=== PATIENT | male | born 1980 | race Caucasian/White ===

== ENCOUNTER 2018-03-01 23:28 | Emergency (ER) | payer OTHER, SELFPAY ==
[2018-03-01 23:42] VITALS: BP 150/90; PULSE 83; RESP 24; TEMP 36.7; O2SAT 100; BMI 35.9
--- NOTE | 2018-03-02 00:03 | ED_ITS ---
HPI - Male Genitourinary General Chief complaint: Urogenital-Male Stated complaint: sharp pain from abdomen to scrotom Time Seen by Provider: 03/02/18 00:03 Source: patient Mode of arrival: ambulatory Limitations: no limitations History of Present Illness HPI Narrative: The patient was walking around outside this evening, he experienced sudden onset of right testicular pain radiating to the right mid abdomen. He urinated about 20 min before onset of pain. There is no dysuria or hematuria. The pain started suddenly 20 min afterwards. He has no prior history of similar pain. He has no associated swelling. With the abdominal pain there is no nausea, vomiting or diarrhea. He has no back pain. He has no history of UTI Or kidney stones. He is generally healthy. Related Data Allergies Allergy/AdvReac Type Severity Reaction Status Date / Time No Known Drug Allergies Allergy Verified 03/02/18 00:32 Review of Systems Constitutional Denies chills, Denies fever(s), Denies lethargy and Denies weakness Gastrointestinal Gastrointestinal: Reports abdominal pain, Denies change in bowel habits, Denies diarrhea, Denies nausea and Denies vomiting Genitourinary Denies hematuria, Reports flank pain, Denies scrotal swelling, Denies testicular mass, Reports testicular pain, Denies urinary incontinence and Denies urinary urgency Musculoskeletal Denies back pain Integumentary/Breasts Denies erythema and Denies rash Neurologic Denies weakness [facility] Social History Smoking Status: Never smoker Exam Initial Vital Signs Initial Vital Signs: Vital Signs Temperature 98.0 F 03/01/18 23:42 Pulse Rate 83 03/01/18 23:42 Respiratory Rate 24 03/01/18 23:42 Blood Pressure 150/90 H 03/01/18 23:42 Pulse Oximetry 100 03/01/18 23:42 Const General: cooperative and well developed Nutritional Appearance: well nourished Orientation: alert, awake and oriented x3 HENMT Head: normocephalic and atraumatic GI Palpation: soft, no hepatosplenomegaly, No pulsatile mass and No tender Auscultation: normal bowel sounds External: normal external exam, circumcised, no edema, no erythema, no hernia, no scrotal swelling and tenderness ( Both testicles are retracted. He has right testicular tenderness without obvious mass.) Penis: normal penis Scrotum: no scrotal swelling Testes: other ( no obvious hernia) Back/Spine/Pelvis Back: No CVA tenderness Skin General: no rashes or lesions noted Neuro General: alert, oriented x3, gait normal and no focal motor deficits Speech: speech normal Course Orders Ordered: ED Orders 03/02/18 00:13 US scrotum Stat 03/02/18 00:57 Urinalysis and Microscopic Stat 03/02/18 02:34 Urine Microscopic Stat Discontinued Medications Ibuprofen (Advil) 800 mg PO NOW ONE Stop: 03/02/18 00:14 Last Admin: 03/02/18 00:28 Dose: 800 mg Ondansetron HCl (Zofran Odt) 4 mg PO NOW ONE Stop: 03/02/18 00:54 Last Admin: 03/02/18 00:53 Dose: 4 mg Vital Signs - 8 hr 03/01/18 23:42 Temperature 98.0 F Pulse Rate 83 Respiratory Rate 24 Blood Pressure 150/90 H Pulse Oximetry 100 [facility] - Male Genitourinary Lab Data Lab Results 03/02/18 Range/Units 00:57 Urine Color Yellow Urine Appearance Clear Urine pH 7.0 (4.5-8.0) Ur Specific [place] 1.020 (1.000-1.035) Urine Protein Negative (Negative) Urine Glucose (UA) Negative (Normal) g/dL Urine Ketones Negative (NEGATIVE) Urine Occult Blood 2+ H (Negative) Urine Nitrate Negative (Negative) Urine Bilirubin Negative (NEGATIVE) Urine Urobilinogen 0.2 (0.2) E.U./dL Ur Leukocyte Esterase Negative (NEGATIVE) Urine RBC 0-1/hpf (0-5/HPF) Urine WBC 0-1/hpf (0-5/HPF) Urine Bacteria None seen (None) Ur Culture Indicated? Cult not indicated Micro UA Comment Not Reportable Imaging Data Scrotal US: Radiologist's impression: Normal. no masses, normal arterial flow, no evidence of torsion or epididymitis. [facility] Narrative Medical decision making narrative: The patient vomited. After vomiting all testicular and abdominal pain ceased. His ultrasound and urine sample or benign. I could not detect a hernia on exam, but I do think a hernia could explain the pain and the resolution of pain with vomiting. I have discussed this with the patient. Discharge Plan Departure Patient Disposition: Home, Self-Care Clinical Impression: Acute pain in scrotum Activity Restrictions/Additional Instructions: Advil every 6 hr as needed for pain. If you have ongoing symptoms in the right lower quadrant or scrotum, follow up with your doctor. As we discussed, I think there is a possibility of a hernia. Return here for acute, uncontrollable pain.
--- NOTE | 2018-03-02 00:13 | DI.US.S_ITS ---
PROCEDURE: US SCROTUM INDICATIONS: SUDDEN ONSET RIGHT SCROTAL PAIN TECHNIQUE: Real-time scanning was performed of the scrotum and testicles, with image documentation. Color and pulse Doppler interrogation was performed of both testicles. COMPARISON: None. FINDINGS: Right: Testicle is normal in size at 2.5 x 3.6 x 5.4 cm, and homogenous in echotexture. Epididymis is normal in overall size and morphology. No hydrocele or varicoceles. Overlying scrotal skin is normal in thickness. Left: Testicle is normal in size at 2.5 x 3.4 x 5.5 cm, and homogeneous in echotexture. Epididymis is normal in overall size and morphology. No hydrocele or varicoceles. Overlying scrotal skin is normal in thickness. Doppler: Color and pulse Doppler demonstrate normal and symmetric arterial flow in both testicles. IMPRESSION: Normal examination bilaterally. Dictated by: David Campos M.D. on 03/02/2018 at 9:32 Approved by: David Campos M.D. on 03/02/2018 at 9:32
[2018-03-02] MEDS: IBUPROFEN 400 MG TABLET 800 MG PO (00:28)
[2018-03-02] MEDS: ONDANSETRON 4 MG ODT PO (00:53)
--- NOTE | 2018-03-02 00:55 | PC.NURSE ---
Pt with violent vomiting while in [place] to void. Dr Israel notified- pt medicated with ODT zofran per order. Pt now in room with US at bedside.
[2018-03-02 00:58] LABS: Bacteria Urine None Seen
[2018-03-02 01:00] LABS: Appearance Urine UA CLEAR; Bilirubin Urine UA NEGATIVE (NEGATIVE); Color Urine UA YELLOW; Glucose Urine UA NEGATIVE (Normal); Ketones Urine UA NEGATIVE (NEGATIVE); Leukocyte Esterase Urine UA NEGATIVE (NEGATIVE); Nitrite Urine UA Negative (Negative); Occult Blood Urine UA 2+ (Negative); Protein Urine UA NEGATIVE (Negative); Urobilinogen Urine UA 0.2 E.U./dL (0.2)
[2018-03-02 01:20] LABS: RBC Urine 0-1/HPF (0-5/HPF); WBC Urine 0-1/HPF (0-5/HPF)
[2018-03-02 01:21] LABS: Culture Indicated Urine Cult Not Indicated
[2018-03-02 03:05] VITALS: BP 114/70; PULSE 83; RESP 16; TEMP 36.8; O2SAT 98
== END 2018-03-02 03:09 | disposition home or self-care (01) ==
PROVIDERS: Emergency Provider Emergency Medicine
DX: N50.82 Scrotal pain (principal)
CPT/HCPCS: 76870; 81001; 99283; 99284